=== PATIENT | female | born 1970 | race Caucasian/White ===

== ENCOUNTER 2022-07-26 08:00 | Day surgery (SDC) | payer MEDICAID, OTHER ==
[~2022-07-26 08:00] MED LIST: Lactated Ringers 1,000 ML IV SCH; Lidocaine 1%/Sod Bicarbonate in NS 8.4% 1 ML Syringe IDERM PRN; Sodium Chloride 0.9% 10 ML Syringe FLUSH PRN; Sodium Chloride 0.9% 10 ML Syringe FLUSH SCH
[2022-07-26] MEDS ORDERED: Propofol 200 MG/20 ML SDV ONE (09:01)
[2022-07-26] MEDS ORDERED: Midazolam 1 MG/ML 2 ML SDV ONE (09:01)
[2022-07-26] MEDS ORDERED: fentaNYL 100 MCG/2 ML SDV ONE (09:01)
[2022-07-26] MEDS ORDERED: Lactated Ringers 1,000 ML ONE (09:14)
[2022-07-26] MEDS ORDERED: Lidocaine 1% 4 ML ONE (09:18)
== END 2022-07-26 11:15 | disposition home or self-care (01) ==
LOC: JD.SDS 08:00
PROVIDERS: ATTEND Surgery
DX: D12.3 Benign neoplasm of transverse colon (principal); K29.50 Unspecified chronic gastritis without bleeding; K21.9 Gastro-esophageal reflux disease without esophagitis; K20.90 Esophagitis, unspecified without bleeding; K44.9 Diaphragmatic hernia without obstruction or gangrene; K29.70 Gastritis, unspecified, without bleeding; K29.80 Duodenitis without bleeding; K57.30 Diverticulosis of large intestine without perforation or abscess without bleeding; K64.8 Other hemorrhoids; I48.0 Paroxysmal atrial fibrillation; E78.5 Hyperlipidemia, unspecified; I10 Essential (primary) hypertension; G47.30 Sleep apnea, unspecified; E03.9 Hypothyroidism, unspecified; F32.A Depression, unspecified; E66.9 Obesity, unspecified; I48.91 Unspecified atrial fibrillation; E11.9 Type 2 diabetes mellitus without complications; Z90.49 Acquired absence of other specified parts of digestive tract; Z79.01 Long term (current) use of anticoagulants; Z98.890 Other specified postprocedural states; Z79.890 Hormone replacement therapy; Z87.891 Personal history of nicotine dependence; Z68.42 Body mass index [BMI] 45.0-49.9, adult; Z79.82 Long term (current) use of aspirin; Z79.84 Long term (current) use of oral hypoglycemic drugs
CPT/HCPCS: 43239; 45380; 82947; J2250; J2704; J3010; J7120; 00813; J3490